=== PATIENT | male | born 1945 | race Caucasian/White ===

== ENCOUNTER → 2017-08-18 09:48 | Outpatient (CLI) | payer OTHER, SELFPAY ==
--- NOTE | 2017-08-18 | DI.CT.S_ITS ---
PROCEDURE: CT ABDOMEN PELVIS W CON INDICATIONS: RIGHT KIDNEY MASS/HEMATURIA TECHNIQUE: After the administration of intravenous contrast, 5 mm thick sections acquired from the diaphragm to the symphysis. 5 mm coronal and sagittal reformats were acquired. For radiation dose reduction, the following was used: automated exposure control, adjustment of mA and/or kV according to patient size. COMPARISON: [facility], CT, ABDOMEN/PELVIS WITH CONTRAST, 08/02/2016, 16:14. FINDINGS: Image quality: Excellent. ABDOMEN: Lung bases: Bibasal or scarring is unchanged. Lung bases are otherwise clear. Heart size is enlarged. Solid organs: Liver is normal in size and enhancement. Gallbladder is surgically absent. Biliary system is non dilated. Pancreas enhances normally. Spleen is normal in size and enhancement. No adrenal nodules. Slight increase in size of exophytic hypo-dense focus protruding posteriorly from the superior pole right kidney measuring 24 mm. Kidneys demonstrate otherwise normal size and enhancement, without hydronephrosis. Peritoneum and bowel: Bowel loops demonstrate normal wall thickness and caliber. No free fluid or air. Normal appendix. Nodes and vessels: No retroperitoneal or mesenteric adenopathy by size criteria. Aorta and inferior vena cava are normal in size. Miscellaneous: No ventral hernias. PELVIS: Genitourinary: Bladder wall thickness is normal. Miscellaneous: No inguinal hernias or adenopathy. Bones: No suspicious bony lesions. No vertebral body compression fractures. IMPRESSION: 1. Slight increase in right superior pole renal cyst. No evidence of malignancy. 2. Normal appendix. Dictated by: Silvia Murphy M.D. on 08/18/2017 at 11:48 Approved by: Silvia Murphy M.D. on 08/18/2017 at 11:52
[2017-08-18 10:24] LABS: Estimated Glomerular Filt Rate > 60.0 mL/min (>60)
== END ==
PROVIDERS: PCP Family Medicine; Visit Provider Family Medicine
DX: R31.9 Hematuria, unspecified (principal); N28.89 Other specified disorders of kidney and ureter
CPT/HCPCS: 36415; 74177; 82565; Q9967